=== PATIENT | female | born 2000 | race Caucasian/White ===

== ENCOUNTER 2019-01-16 13:34 | Emergency (ER) | payer BC ==
[~2019-01-16] VITALS: Ht 172.7 cm; Wt 81.8 kg
[2019-01-16 13:39] VITALS: TEMP 98
[2019-01-16] MEDS ORDERED: NOVOLOG 100U100 U/M1 (14:21)
[2019-01-16 14:23] LABS: BASO % 0.5 % (0.0-2.0); EOS # 0.1 (0.0-0.7); EOS % 1.4 % (0-4.0); GRAN # 3.7 (1.4-6.5); GRAN % 63.3 % (42.2-75.2); HEMATOCRIT 44.2 % (35.0-45.0); HEMOGLOBIN 15.4 g/dl (12.0-15.0); LYMPH # 1.7 (1.2-3.4); LYMPH % 29.4 % (20.0-51.0); MEAN CELL VOLUME 90 fl (80.0-95.0); MEAN CORPUSCULAR HEMOGLOBIN 31 pg (26.0-32.0); MEAN CORPUSCULAR HGB CONC 35 g/dl (33.0-37.0); MONO # 0.3 (0.1-0.6); MONO % 5.2 % (1.7-9.3); PLATELET COUNT 311 K/mm3 (130-400); RED BLOOD COUNT 4.93 M/mm3 (4.10-5.30); REDCELL DISTRIBUTION WIDTH-CV 12.1 % (11.5-14.5)
[2019-01-16 14:47] LABS: ALANINE AMINOTRANSFERASE 10 U/L (9-52); ALBUMIN 4.8 gm/dL (3.5-5.0); ALKALINE PHOSPHATASE 92 U/L (50-136); ANION GAP 10 mmol/L (7-16); AST,SGOT 38 U/L (15-37); BLOOD UREA NITROGEN 11 mg/dL (7-17); C-REACTIVE PROTEIN < 0.5 mg/dL (0.0-0.9); CALCIUM 10.2 mg/dL (8.4-10.2); CARBON DIOXIDE 24 mmol/L (22-30); CHLORIDE 105 mmol/L (98-107); CREATININE, serum 0.94 (0.52-1.25); GLUCOSE 232 mg/dL (74-106); POTASSIUM 3.9 mmol/L (3.4-5.0); SODIUM 138 mmol/L (137-145); TOTAL PROTEIN 7.6 gm/dL (6.4-8.2)
[2019-01-16 14:51] LABS: COLLECTION METHOD CLEAN CATCH
[2019-01-16 14:57] LABS: PH 8 (5-8); SQUAMOUS EPITHELIAL 0-2 /hpf; URINE APPEARANCE Clear; URINE BACTERIA None Seen /hpf; URINE BILIRUBIN Negative (NEGATIVE); URINE BLOOD Negative (NEGATIVE); URINE COLOR Yellow; URINE GLUCOSE 3+ (NEGATIVE); URINE KETONE Negative (NEGATIVE); URINE LEUKOCYTE ESTERASE Negative (NEGATIVE); URINE NITRATE Negative (NEGATIVE); URINE PROTEIN(semi-quant) Negative (NEGATIVE); URINE RBC 0-2 /hpf; URINE UROBILINOGEN Negative (NEGATIVE)
[2019-01-16 16:13] VITALS: BP 123/85; PULSE 74
== END 2019-01-16 16:15 | disposition home or self-care (01) ==
LOC: COL.ER 13:34
PROVIDERS: Nurse Practitioner
DX: K92.1 Melena (principal); E10.9 Type 1 diabetes mellitus without complications; Z90.49 Acquired absence of other specified parts of digestive tract; Z87.891 Personal history of nicotine dependence

== ENCOUNTER 2020-05-21 00:03 | Inpatient (IN) | payer BC ==
[~2020-05-21] VITALS: Ht 172.7 cm; Wt 99.8 kg
[2020-05-21] VITALS (352 sets, daily range): BP systolic 93–122; BP diastolic 56–75; PULSE 88–100; TEMP 98–98.1; O2SAT 95–100
[~2020-05-21 00:03] MED LIST: NOVOLOG 100U100 U/M1
[2020-05-21 00:44] LABS: HEMATOCRIT 46.6 % (37.0-47.0); HEMOGLOBIN 16.2 g/dl (12.5-16.0); MEAN CELL VOLUME 89 fl (80.0-100.0); MEAN CORPUSCULAR HEMOGLOBIN 31 pg (27.0-31.0); MEAN CORPUSCULAR HGB CONC 35 g/dl (33.0-37.0); MEAN PLATELET VOLUME 9.6 fl (7.4-10.4); PLATELET COUNT 369 K/mm3 (130-400); RED BLOOD COUNT 5.26 M/mm3 (4.10-5.30); REDCELL DISTRIBUTION WIDTH-CV 11.7 % (11.5-14.5)
[2020-05-21 00:55] LABS: ALBUMIN 4.8 gm/dL (3.5-5.0); BILIRUBIN,TOTAL 1.5 mg/dL (0.0-1.0); CALCIUM 9.6 mg/dL (8.4-10.2); CREATININE, serum 0.94 (0.52-1.25); MAGNESIUM 1.5 mg/dL (1.6-2.3); POTASSIUM 4.6 mmol/L (3.4-5.0); TOTAL PROTEIN 7.5 gm/dL (6.4-8.2)
[2020-05-21 01:00] LABS: COLLECTION METHOD CLEAN CATCH
[2020-05-21 01:07] LABS: PH 5 (5-8); SQUAMOUS EPITHELIAL 0-2 /hpf; URINE APPEARANCE Clear; URINE BACTERIA None Seen /hpf; URINE BILIRUBIN Negative (NEGATIVE); URINE BLOOD Negative (NEGATIVE); URINE COLOR Yellow; URINE GLUCOSE 3+ (NEGATIVE); URINE KETONE 2+ (NEGATIVE); URINE LEUKOCYTE ESTERASE Negative (NEGATIVE); URINE NITRATE Negative (NEGATIVE); URINE PROTEIN(semi-quant) Negative (NEGATIVE); URINE RBC 0-2 /hpf; URINE UROBILINOGEN Negative (NEGATIVE)
[2020-05-21 01:12] LABS: BAND 12 % (0-10); BASOPHIL 1 % (0-2); EOSINOPHIL 1 % (0-4); LYMPHOCYTE 4 % (20.0-51.0); NEUTROPHILS 79 % (42.0-75.2); PLATELET ESTIMATE NORMAL (NORMAL)
[2020-05-21] MEDS ORDERED: WELLBUTRIN XL150 MG PO (02:43)
[2020-05-21] MEDS ORDERED: CELEXA 20MG20 MG/TAB PO (02:43)
[2020-05-21 03:52] LABS: CALCIUM 8.3 mg/dL (8.4-10.2); CREATININE, serum 0.81 (0.52-1.25); POTASSIUM 4.5 mmol/L (3.4-5.0)
--- NOTE | 2020-05-21 04:00 | NUR ---
Pt arrived from ED. Pt ambulated from hallway to commode, urinated, then ambulated to bed without difficulty. Insulin gtt not initiated by ED staff. Pt stated she has "had my insulin pump on and running since being here". Pt experience mild nausea/GERD symptoms. Pt tolerating ice water without increased nausea or vomiting. Pt has no valuables she wishes to be sent to the [facility]. Cell phone with pt - communicating with ance on status and plan of care, pt denies need for staff to call and speak/update fiance. Call light in reach, no complaints/concerns/needs at this time
[2020-05-21 07:47] LABS: BASO % 0.4 % (0.0-2.0); EOS % 0.2 % (0-4.0); GRAN # 6.8 (1.4-6.5); GRAN % 83.7 % (42.2-75.2); HEMATOCRIT 37.6 % (37.0-47.0); LYMPH # 0.9 (1.2-3.4); LYMPH % 11.2 % (20.0-51.0); MEAN CELL VOLUME 90 fl (80.0-100.0); MEAN CORPUSCULAR HEMOGLOBIN 31 pg (27.0-31.0); MEAN CORPUSCULAR HGB CONC 35 g/dl (33.0-37.0); MEAN PLATELET VOLUME 9.7 fl (7.4-10.4); MONO # 0.3 (0.1-0.6); MONO % 4.1 % (1.7-9.3); PLATELET COUNT 296 K/mm3 (130-400); REDCELL DISTRIBUTION WIDTH-CV 11.9 % (11.5-14.5)
[2020-05-21 07:52] LABS: HEMOGLOBIN 13.2 g/dl (12.5-16.0)
[2020-05-21 08:01] LABS: CALCIUM 8.2 mg/dL (8.4-10.2); CREATININE, serum 0.73 (0.52-1.25); POTASSIUM 4.2 mmol/L (3.4-5.0)
[2020-05-21 12:57] LABS: CALCIUM 8.6 mg/dL (8.4-10.2); CREATININE, serum 0.81 (0.52-1.25); MAGNESIUM 2.3 mg/dL (1.6-2.3); POTASSIUM 4.3 mmol/L (3.4-5.0)
--- NOTE | 2020-05-21 14:54 | NUR ---
PT discharged at 1454. Patient verbalizes understanding of education and will call if any problems arise. Pt will follow up with PCP. Pt is ambulatory with fiance out to car.
--- NOTE | 2020-05-22 09:48 | NUR ---
On 05/21/2020, nursing home social worker met with patient and physician for rounding and initial intake assessment for discharge planning. 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 Patient states she is followed by Dr Carr at the [facility] and has a personal insulin pump. Patient states she feels her illness was brought on by a stomach bug she acquired from her job. Patient states that she will have a ride arranged this date if she is discharged. Patient gave nursing home social worker permission to contact technology program manager at [employer] to advise that she is hospitalized. Worker encouraged patient to email all of her professors and advise that she is in the hospital. On this date, nursing home social worker notified technology program manager at [employer] and advised that patient was admitted and discharged on 05/21/2020.
== END 2020-05-21 14:54 | disposition home or self-care (01) | DRG 639 ==
LOC: COL.ER 00:03 → ICU 01:41 → COL.ER 03:50 → ICU 14:54
PROVIDERS: Family Medicine; Hospitalist; Student in an Organized Health Care Education/Training Program; ADMIT Internal Medicine
DX: E10.10 Type 1 diabetes mellitus with ketoacidosis without coma (principal); Z96.41 Presence of insulin pump (external) (internal); E83.42 Hypomagnesemia; D72.829 Elevated white blood cell count, unspecified; R79.89 Other specified abnormal findings of blood chemistry; I88.0 Nonspecific mesenteric lymphadenitis; F32.9 Major depressive disorder, single episode, unspecified; F41.9 Anxiety disorder, unspecified; Z87.891 Personal history of nicotine dependence
CPT/HCPCS: 99222-AI; J1650; J1815; J2405; J3475; J3480; J7030; Q9967